=== PATIENT | female | born 1980 | race African-American/Black ===

== ENCOUNTER 2019-01-25 21:39 | Emergency (ER) | payer SELFPAY ==
[~2019-01-25] VITALS: Ht 149.9 cm; Wt 43.5 kg
[2019-01-25 23:05] VITALS: BP 131/91
[2019-01-25] MEDS ORDERED: DexAMETHasone SOD PHOS 10MG/1ML VIAL INJ IM ONE (23:15)
[2019-01-25] MEDS ORDERED: ACETAMINOPHEN/CODEINE#3 (300/30mg) TAB PO ONE (23:15)
== END 2019-01-26 | disposition home or self-care (01) ==
LOC: ER 21:46
DX: H61.23 Impacted cerumen, bilateral (principal); H65.93 Unspecified nonsuppurative otitis media, bilateral
CPT/HCPCS: 96372; 99283; J1100

== ENCOUNTER 2019-10-17 14:02 | Emergency (ER) | payer MEDICAID ==
[~2019-10-17] VITALS: Ht 139.7 cm; Wt 43.5 kg
[2019-10-17 14:19] VITALS: BP 139/73
[2019-10-17 15:08] LABS: Basophils # (auto) 0 10 ^3/uL (0-0.2); Basophils % (auto) 0.4 % (0.0-2.0); Eosinophils # (auto) 0.1 10 ^3/uL (0-0.8); Eosinophils % (auto) 1.5 % (0.0-7.0); Hematocrit 32.2 % (36.0-46.0); Hemoglobin 10.5 g/dL (12.2-16.2); Lymphocytes # (auto) 1.9 10 ^3/uL (0.4-5.4); Lymphocytes % (auto) 25.6 % (10.0-50.0); Mean Corpuscular Hemoglobin 30.4 pg (28.0-32.0); Mean Corpuscular Hgb Conc. 32.7 g/dL (32.0-36.0); Mean Corpuscular Volume 93.1 fL (80.0-100.0); Monocytes # (auto) 0.7 10 ^3/uL (0-1.3); Monocytes % (auto) 9.3 % (0.0-12.0); Neutrophils # (auto) 4.6 10 ^3/uL (1.6-8.6); Neutrophils % (auto) 63.2 % (37.0-80.0); Nucleated Red Blood Cells % 0.1 %; Platelet Count (auto) 184 10^3/uL (140-450); Red Blood Cells 3.46 10^6/uL (4.0-5.20); Red Cell Distribution Width 13.4 % (11.8-14.3); White Blood Cell 7.3 10^3/uL (4.4-10.8)
[2019-10-17 16:26] LABS: Albumin 3.2 g/dL (3.4-5.0); Calcium 8.8 mg/dL (8.5-10.1); Potassium 3.9 mmol/L (3.5-5.1)
[2019-10-17 16:29] LABS: BUN/Creatinine Ratio 17.6; Bilirubin, Total 0.4 mg/dL (0.2-1.0); Total Protein 6.6 g/dL (6.4-8.2)
== END 2019-10-17 19:12 | disposition home or self-care (01) ==
LOC: ER 14:02
DX: M06.9 Rheumatoid arthritis, unspecified (principal); M79.661 Pain in right lower leg; M79.662 Pain in left lower leg; Z88.5 Allergy status to narcotic agent
CPT/HCPCS: 36415; 80053; 85025; 85652